=== PATIENT | female | born 2000 | race Caucasian/White ===

== ENCOUNTER 2020-03-17 17:48 | Emergency (ER) | payer OTHER ==
[~2020-03-17] VITALS: Ht 170.2 cm; Wt 72.6 kg
[2020-03-17] MEDS ORDERED: LACTATED RINGERS 1,000 ML IV ONE ×2 (18:12→21:35)
[2020-03-17] MEDS ORDERED: ACETAMINOPHEN 500 MG TAB (TYLENOL) PO ONE (18:15)
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
[2020-03-17 18:56] LABS: BASOPHILS % (AUTO) 0 % (0-10); EOSINOPHILS % (AUTO) 0 % (0-10); HEMATOCRIT 42 % (35-52); LYMPHOCYTES # (AUTO) 1.8 10^3/uL (1.0-4.0); LYMPHOCYTES % (AUTO) 17 % (12-44); MEAN CORPUSCULAR HEMOGLOBIN 29 pg (25-34); MEAN CORPUSCULAR HGB CONC 34 g/dL (32-36); MEAN CORPUSCULAR VOLUME 87 fL (80-99); MEAN PLATELET VOLUME 12.3 fL (9.0-12.2); MONOCYTES # (AUTO) 0.8 10^3/uL (0.0-1.0); MONOCYTES % (AUTO) 8 % (0-12); NEUTROPHILS # (AUTO) 7.8 10^3/uL (1.8-7.8); NEUTROPHILS % (AUTO) 75 % (42-75); PLATELET COUNT 229 10^3/uL (130-400); WHITE BLOOD COUNT 10.4 10^3/uL (4.3-11.0)
[2020-03-17 18:58] LABS: BILIRUBIN,URINE NEGATIVE (NEGATIVE); CLARITY,URINE SL CLOUDY; COLOR,URINE YELLOW; GLUCOSE, URINE (UA) NEGATIVE (NEGATIVE); KETONES,URINE NEGATIVE (NEGATIVE); LEUKOCYTE ESTERASE ,URINE NEGATIVE (NEGATIVE); NITRITE,URINE NEGATIVE (NEGATIVE); PH,URINE 6.5 (5-9); PROTEIN,URINE NEGATIVE (NEGATIVE)
[2020-03-17 19:05] LABS: BACTERIA,URINE TRACE /HPF; SQUAMOUS EPITHELIAL CELL,UR 0-2 /HPF
[2020-03-17 19:08] LABS: CHLORIDE 103 MMOL/L (98-107); INR 1.1 (0.8-1.4); POTASSIUM 3.6 MMOL/L (3.6-5.0); PROTHROMBIN TIME PATIENT 14.4 SEC (12.2-14.7); SODIUM 138 MMOL/L (135-145)
[2020-03-17 19:09] LABS: ALBUMIN 4.8 GM/DL (3.2-4.5)
[2020-03-17 19:10] LABS: CALCIUM 9.8 MG/DL (8.5-10.1)
[2020-03-17 19:11] LABS: AMPHETAMINE SCREEN, URINE NEGATIVE (NEGATIVE); AMYLASE 35 U/L (25-125); BARBITURATE SCREEN URINE NEGATIVE (NEGATIVE); BENZODIAZEPINES SCREEN URINE NEGATIVE (NEGATIVE); CANNABINOID SCREEN, URINE NEGATIVE (NEGATIVE); COCAINE SCREEN URINE NEGATIVE (NEGATIVE); GLUCOSE 95 MG/DL (70-105); METHADONE STAT NEGATIVE (NEGATIVE); METHAMPHETAMINE SCREEN URINE S NEGATIVE (NEGATIVE); OPIATE SCREEN URINE NEGATIVE (NEGATIVE); OXYCODONE STAT NEGATIVE (NEGATIVE); PROPOXYPHENE STAT NEGATIVE (NEGATIVE); TRICYCLIC ANTIDEPRESSANTS SCRE NEGATIVE (NEGATIVE)
[2020-03-17 19:12] LABS: CARBON DIOXIDE 24 MMOL/L (21-32); TOTAL PROTEIN 7.7 GM/DL (6.4-8.2)
[2020-03-17 19:13] LABS: BILIRUBIN,TOTAL 0.7 MG/DL (0.1-1.0)
[2020-03-17 19:14] LABS: ERYTHROCYTE SEDIMENTATION RATE 16 MM/HR (0-20)
[2020-03-17 19:15] LABS: ALKALINE PHOSPHATASE 69 U/L (40-136); CREATININE SERUM 0.79 MG/DL (0.60-1.30); GFR ESTIMATED > 60
[2020-03-17 19:16] LABS: BUN/CREATININE RATIO 8
[2020-03-17 19:18] LABS: ALANINE AMINOTRANSFERASE 22 U/L (0-55); SALICYLATE < 5.0 MG/DL (5.0-20.0)
[2020-03-17 19:19] LABS: CREATINE KINASE 88 U/L (29-168)
[2020-03-17 19:27] LABS: CREATINE KINASE MB 0.7 NG/ML (<6.6)
[2020-03-17 19:37] LABS: ACETAMINOPHEN < 10 UG/ML (10-30)
[2020-03-17 19:39] LABS: TSH (THYROID ANALYZER) 1.85 UIU/ML (0.35-4.94)
--- NOTE | 2020-03-17 19:55 | Diagnostic Imaging Report ---
PROCEDURE: CT head w/o, r/o stroke. TECHNIQUE: Multiple contiguous axial images were obtained through the brain without the use of intravenous contrast. Auto Exposure Controls were utilized during the CT exam to meet ALARA standards for radiation dose reduction. INDICATION: Altered mental status. FINDINGS: The ventricles are normal in size, shape and position. There is no mass or hemorrhage. There is no extra-axial fluid collection. IMPRESSION: Negative CT head. Results were called to Emergency Room at 1952 hours. Dictated by: Dictated on workstation # [id number]
--- NOTE | 2020-03-17 20:24 | Diagnostic Imaging Report ---
INDICATION: Low respiratory infection. EXAMINATION: Portable chest at 7:37 p.m. FINDINGS: Heart size and pulmonary vascularity are normal. Lungs are clear. There is no effusion or pneumothorax. IMPRESSION: Negative chest. Dictated by: Dictated on workstation # [id number]
--- NOTE | 2020-03-17 20:37 | NUR ---
DOLORES Liao arrives to ER et obtaining hx.
--- NOTE | 2020-03-17 20:39 | NUR ---
Dr. Greco speaking with pt mother, Rama. Rama gives verbal consent for lumbar puncture to DOLORES Felix.
--- NOTE | 2020-03-17 21:37 | Anesthesia-Procedure Note ---
Procedures/Interventions Procedure Start/Stop/Diagnosis Date of Procedure: Mar 17, 2020 Start Time: 21:00 Stop Time: 21:37 Lumbar Puncture Discussed Risk,Benefits: Yes Patient Consents: Yes Position: Lying, L3-4, Right Sterile Technique: Yes Opening Pressure: 15 Fluid Color: clear Spinal Needle Used: Other (22g pencan 3 1/2 ") FABIANA MCKEON CRNA Mar 17, 2020 21:37
[2020-03-17] MEDS ORDERED: OLANZapine 5 MG ODT (ZyPREXA ZYDIS) ONE (21:52)
[2020-03-17] MEDS ORDERED: OLANZapine 5 MG ODT (ZyPREXA ZYDIS) PO ONE ×2 (22:00→23:30)
--- NOTE | 2020-03-17 22:21 | NUR ---
Upon entering room, pt noted to have pulled out 20g IV to R a/c. Provider notified.
--- NOTE | 2020-03-17 22:30 | NUR ---
Upon entering room, pt on hands and knees, wiping soap on floor. Pt noted to have thrown multiple stock items in trash can. Pt redirected.
--- NOTE | 2020-03-17 22:40 | NUR ---
Pt resting on ED cart eating cheese, jello, et orange juice. Pt states, "I'm nervous."
[2020-03-17] MEDS ORDERED: LORazepam 0.5 MG (ATIVAN) TABLET PO STA (22:41)
[2020-03-17 22:50] LABS: APPEARANCE,CSF CLEAR; COLOR,CSF COLORLESS; CSF GLUCOSE 64 MG/DL (50-80); RED BLOOD CELL,CSF 2 CELLS (0-0); WHITE BLOOD CELL,CSF 3 CELLS (0-5)
[2020-03-17 22:51] LABS: CSF TUBE NUMBER 4
[2020-03-17 22:56] LABS: CSF TOTAL PROTEIN 22 MG/DL (15-40)
--- NOTE | 2020-03-17 22:59 | NUR ---
Report given to BRADEN Mroeau to assume care of pt at this time.
--- NOTE | 2020-03-17 23:00 | NUR ---
ASSUMED CARE OF THIS PATIENT FROM RAMBO FELICIANO. CALL LIGHT IN REACH, MONITORING MAINTAINED.
--- NOTE | 2020-03-17 23:30 | NUR ---
PATIENT MOVED FROM ROOM 3 TO ROOM 5 TO BE CLOSER TO THE NURSES STATION. PATIENT IS MADE COMFORTABLE IN BED, CALL LIGHT IN REACH.
--- NOTE | 2020-03-18 01:30 | NUR ---
VISUALLY CHECKED ON PATIENT. APPEARS ASLEEP WITH CALL LIGHT IN REACH. WILL CONTINUE TO MONITOR.
--- NOTE | 2020-03-18 01:50 | NUR ---
PATIENTS MOTHER BRIANA CALLS TO CHECK ON HER DAUGHTER. UPDATE GIVEN, PATIENT STABLE. MONITORING MAINTAINED.
--- NOTE | 2020-03-18 03:45 | NUR ---
IN ROOM TO CHECK ON PATIENT. PATIENT HAS BEEN SLEEPING ON HER RIGHT SIDE FOR QUITE SOME TIME WITH NOTED BLOOD PRESSURE ON LOW SIDE R/T POSITIONING. THIS RN ENCOURAGED PATIENT TO TURN ONTO HER BACK AND ASSISTED PATIENT TO MOVE UP IN BED. BLOOD PRESSURE NO RECORDED AT 113/78. PATIENT IS COOPERATIVE AND DENIES NEEDS AT THIS TIME. CALL LIGHT IN REACH, MONITORING MAINTAINED.
--- NOTE | 2020-03-18 05:50 | NUR ---
CALLED REPORT TO THE [facility] AT [facility] FOR ROOM 328 BED 2. PATIENT IS GETTING DRESSED AT THIS TIME. WITH STANDBY ASSIST FROM CHRISTOPHER SHAH TO TRANSPORT PATIENT VIA PRIVATE VEHICLE TO [facility]. EXPECTED DEPARTURE OF THIS PATIENT IS APPROX. 0600.
[2020-03-18 06:39] VITALS: BP 102/71
== END 2020-03-18 06:40 ==
LOC: EDUNIT# 17:48 → ER 17:49
DX: F23 Brief psychotic disorder (principal); Z20.828 Contact with and (suspected) exposure to other viral communicable diseases
CPT/HCPCS: 70450; 71045; 80053; 80306; 81000; 82150; 82550; 82553; 82945; 83605; 83615; 83735; 83874; 84145; 84157; 84443; 84703 ×2; 85025; 85610; 85652; 85730; 86141; 86308; 86618; 86666 ×2; 86668; 86757 ×2; 87040; 87070; 87205; 87430; 87804; 89051; 93005; 93041; 99284; G0480 ×3; U0002; 36415; 80320; 80329; 87635